=== PATIENT | female | born 1980 | race Caucasian/White ===

== ENCOUNTER 2020-05-11 12:17 | Emergency (ER) | payer OTHER ==
[2020-05-11] MEDS ORDERED: IBUPROFEN800 MG PO (14:44)
[2020-05-11] MEDS ORDERED: PREDNISONE 20MG20 MG PO (14:44)
== END 2020-05-11 14:55 | disposition home or self-care (01) ==
LOC: FER 12:17
DX: S23.3XXA Sprain of ligaments of thoracic spine, initial encounter (principal); S33.5XXA Sprain of ligaments of lumbar spine, initial encounter; E07.9 Disorder of thyroid, unspecified; F17.210 Nicotine dependence, cigarettes, uncomplicated; Z79.899 Other long term (current) drug therapy; Z88.0 Allergy status to penicillin; V49.60XA Unspecified car occupant injured in collision with unspecified motor vehicles in traffic accident, initial encounter; Y92.410 Unspecified street and highway as the place of occurrence of the external cause
CPT/HCPCS: 72040; 72072; 72100

== ENCOUNTER → 2020-12-22 | Day surgery (SDC) | payer OTHER ==
[~2020-12-22] VITALS: Ht 165.1 cm; Wt 43.5 kg
[~2020-12-22] MED LIST: COLACE100 MG PO; IBUPROFEN800 M1 PO; IBUPROFEN800 MG PO; PERCOCET 5-3251 EACH PO; PREDNISONE 20MG20 MG PO; SYNTHROID150 MCG PO; ZOFRAN4 M1 PO
[2020-12-22 11:08] LABS: HCG (URINE) SCREEN NEGATIVE (NEGATIVE)
[2020-12-22 11:30] LABS: HGB 13.2 g/dl (12.5-16.0); MCH 30.3 pg (25.0-31.0); MCHC 33.8 g/dL (32.0-36.0); MCV 89.7 fL (78.0-100.0); MPV 10.2 fL (6.0-9.5); RBC 4.35 M/uL (4.20-5.40); RDW 12.7 % (11.5-14.0); WBC 9.4 K/uL (4.0-10.5)
== END | disposition home or self-care (01) ==
LOC: FAS 12-21 11:30
PROVIDERS: Obstetrics & Gynecology
DX: N93.9 Abnormal uterine and vaginal bleeding, unspecified (principal); N72 Inflammatory disease of cervix uteri; N83.8 Other noninflammatory disorders of ovary, fallopian tube and broad ligament; D06.9 Carcinoma in situ of cervix, unspecified; N94.6 Dysmenorrhea, unspecified; N94.10 Unspecified dyspareunia; N83.201 Unspecified ovarian cyst, right side; F41.9 Anxiety disorder, unspecified; M19.90 Unspecified osteoarthritis, unspecified site; G43.909 Migraine, unspecified, not intractable, without status migrainosus; M81.0 Age-related osteoporosis without current pathological fracture; F17.210 Nicotine dependence, cigarettes, uncomplicated; Z98.51 Tubal ligation status; Z88.1 Allergy status to other antibiotic agents; Z88.6 Allergy status to analgesic agent; Z79.1 Long term (current) use of non-steroidal anti-inflammatories (NSAID); Z79.899 Other long term (current) drug therapy
CPT/HCPCS: 36415; 84703; 86850; 86900; 86901; J1100; J1170; J1885; J1956; J2250; J2405; J2710; J3010